=== PATIENT | female | born 1950 | race American Indian/Alaskan Native ===

== ENCOUNTER → 2017-06-29 | Outpatient (CLI) | payer MEDICARE, OTHER ==
[~2017-06-29] MED LIST: ADV250 IH; ATOR20TA86 PO; BACL10TA PO; BENZ1TAB70 PO; GABA-531 PO; LISI-662 PO; LORA10TA7 PO; METF500T4 PO; SOLI5 PO; TIOT4MIS2 IH
== END | disposition home or self-care (01) ==
LOC: RADPV 10:12
PROVIDERS: ATTEND Internal Medicine
DX: I70.203 Unspecified atherosclerosis of native arteries of extremities, bilateral legs (principal); R91.8 Other nonspecific abnormal finding of lung field; Z87.891 Personal history of nicotine dependence
CPT/HCPCS: 71046; 93925; 93970

== ENCOUNTER 2017-09-03 05:26 | Emergency (ER) | payer MEDICARE, OTHER ==
[~2017-09-03] VITALS: Ht 160 cm; Wt 65.9 kg
[2017-09-03] MEDS ORDERED: OXYB5 PO (05:36)
[2017-09-03] MEDS ORDERED: OXYB5XL PO (05:36)
[2017-09-03] MEDS ORDERED: METF850T2 PO (05:36)
[2017-09-03] MEDS ORDERED: ADV250 IH (05:36)
[2017-09-03] MEDS ORDERED: CHOL200016 PO (05:36)
[2017-09-03] MEDS ORDERED: NAPR-58 PO (05:36)
[2017-09-03] MEDS ORDERED: ALBU8HFA IH (05:36)
[2017-09-03 05:43] LABS: GLUCOSE,POINT OF CARE 177 MG/DL (70-110)
[2017-09-03] MEDS ORDERED: ALBUTEROL SULFATE HFA 90 MCG/PUFF 8 GM INHALER IH ONE (06:15)
[2017-09-03 06:39] LABS: BASOPHILS % (AUTO) 0.5 % (0.0-2.0); EOSINOPHILS % (AUTO) 1.5 % (1.0-6.0); HEMATOCRIT 38.3 % (36-46); HEMOGLOBIN 12.9 g/dL (12.0-16.0); LYMPHOCYTES # (AUTO) 2.5 K/uL (1.0-4.8); LYMPHOCYTES % (AUTO) 34.7 % (22.0-44.0); MEAN CORPUSCULAR HEMOGLOBIN 28.3 pg (26.0-34.0); MEAN CORPUSCULAR HGB CONC 33.8 G/dL (31.0-37.0); MEAN CORPUSCULAR VOLUME 84 fL (80-100); MONOCYTES # (AUTO) 0.6 K/uL (0.1-1.0); MONOCYTES % (AUTO) 8.4 % (2.0-9.0); NEUTROPHILS % (AUTO) 54.9 % (40.0-70.0); PLATELET COUNT (AUTO) 281 K/uL (150-450); RED BLOOD CELL COUNT(AUTO) 4.57 MIL/uL (4.00-5.20)
[2017-09-03 06:41] LABS: ANION GAP 8 mmol/L (8-16); CALCIUM, TOTAL 8.8 mg/dL (8.8-10.5); CARBON DIOXIDE 27 mmol/L (22-29); CHLORIDE 102 mmol/L (98-107); CREATININE 0.79 mg/dL (0.60-1.30); GLOMERULAR FILTR. RATE CALC > 60 mL/min (>60); GLUCOSE,RANDOM 200 mg/dL (70-110); POTASSIUM 3.9 mmol/L (3.5-5.1); SODIUM SERUM 137 mmol/L (136-145); UREA NITROGEN, BLOOD 8 mg/dL (7-18)
[2017-09-03 06:47] LABS: ALANINE AMINOTRANSFERASE 14 U/L (12-78); ALBUMIN 3.5 g/dL (3.4-5.0); ALKALINE PHOSPHATASE 165 U/L (46-116); ASPARTATE AMINOTRANSFERASE 9 U/L (15-37); BILIRUBIN,TOTAL 0.2 mg/dL (0.1-1.0); TOTAL PROTEIN, SERUM 7.2 g/dL (6.4-8.2)
[2017-09-03 07:30] VITALS: BP 136/69
== END 2017-09-03 07:34 | disposition home or self-care (01) ==
LOC: EMS 05:27
DX: R06.00 Dyspnea, unspecified (principal); J40 Bronchitis, not specified as acute or chronic; J06.9 Acute upper respiratory infection, unspecified; E11.65 Type 2 diabetes mellitus with hyperglycemia; J45.909 Unspecified asthma, uncomplicated; J44.9 Chronic obstructive pulmonary disease, unspecified; E11.9 Type 2 diabetes mellitus without complications; I10 Essential (primary) hypertension; E78.00 Pure hypercholesterolemia, unspecified; F17.210 Nicotine dependence, cigarettes, uncomplicated; Z88.2 Allergy status to sulfonamides; Z88.8 Allergy status to other drugs, medicaments and biological substances
CPT/HCPCS: 82962; 93005; 94640; 99285; 99406; J3535

== ENCOUNTER 2018-08-16 19:12 | Emergency (ER) | payer MEDICARE, MEDICAID ==
[~2018-08-16] VITALS: Ht 160 cm; Wt 72.7 kg
[~2018-08-16 19:12] MED LIST changes: +ALBU8HFA IH; +CHOL200059 PO; -GABA-531 PO; +METF-445 PO; +METF-960 PO; -METF500T4 PO; +NAPR-58 PO; +OXYB5 PO; +OXYB5XL PO
[2018-08-16 19:43] LABS: GLUCOSE,POINT OF CARE 163 MG/DL (70-110)
[2018-08-16 20:44] LABS: BASOPHILS % (AUTO) 0.9 % (0.0-2.0); EOSINOPHILS % (AUTO) 1.7 % (1.0-6.0); HEMATOCRIT 38.7 % (36-46); HEMOGLOBIN 12.6 g/dL (12.0-16.0); LYMPHOCYTES # (AUTO) 2.6 K/uL (1.0-4.8); MEAN CORPUSCULAR HEMOGLOBIN 27.2 pg (26.0-34.0); MEAN CORPUSCULAR HGB CONC 32.6 G/dL (31.0-37.0); MEAN CORPUSCULAR VOLUME 84 fL (80-100); MONOCYTES # (AUTO) 0.6 K/uL (0.1-1.0); MONOCYTES % (AUTO) 6.8 % (2.0-9.0); NEUTROPHILS # (AUTO) 4.8 K/uL (1.8-7.7); NEUTROPHILS % (AUTO) 58.6 % (40.0-70.0); PLATELET COUNT (AUTO) 335 K/uL (150-450); RED BLOOD CELL COUNT(AUTO) 4.64 MIL/uL (4.00-5.20); RED CELL DISTRIBUTION WIDTH 13.7 % (11.5-14.5)
[2018-08-16 20:54] LABS: ANION GAP 10 mmol/L (8-16); CALCIUM, TOTAL 9.5 mg/dL (8.8-10.5); CARBON DIOXIDE 29 mmol/L (22-29); CHLORIDE 102 mmol/L (98-107); CREATININE 0.74 mg/dL (0.60-1.30); GLOMERULAR FILTR. RATE CALC > 60 mL/min (>60); GLUCOSE,RANDOM 157 mg/dL (70-110); SODIUM SERUM 141 mmol/L (136-145); UREA NITROGEN, BLOOD 13 mg/dL (7-18)
[2018-08-16 21:01] LABS: ALANINE AMINOTRANSFERASE 16 U/L (12-78); ALBUMIN 3.2 g/dL (3.4-5.0); ALKALINE PHOSPHATASE 140 U/L (46-116); ASPARTATE AMINOTRANSFERASE 11 U/L (15-37); BILIRUBIN,TOTAL 0.2 mg/dL (0.1-1.0)
[2018-08-16 21:50] LABS: AMPHET/METH SCREEN,URINE NEGATIVE (NEGATIVE); BARBITURATE SCREEN, URINE NEGATIVE (NEGATIVE); BENZODIAZEPINES SCREEN,URINE NEGATIVE (NEGATIVE); CANNABINOID SCREEN,URINE POSITIVE (NEGATIVE); COCAINE SCREEN,URINE NEGATIVE (NEGATIVE); METHADONE SCREEN, URINE NEGATIVE (NEGATIVE); OPIATE SCREEN,URINE NEGATIVE (NEGATIVE)
[2018-08-16 21:51] LABS: PHENCYCLIDINE SCREEN,URINE NEGATIVE (NEGATIVE)
[2018-08-16] MEDS ORDERED: IBUPROFEN 600 MG TABLET PO ONE (22:00)
[2018-08-16 22:31] LABS: APPEARANCE,URINE CLOUDY (CLEAR); BILIRUBIN,URINE NEGATIVE (NEGATIVE); GLUCOSE, URINE (UA) 100 mg/dL (NEGATIVE); KETONES,URINE NEGATIVE (NEGATIVE); LEUKOCYTE ESTERASE ,URINE LARGE (NEGATIVE); NITRATE,URINE NEGATIVE (NEGATIVE); OCCULT BLOOD,URINE TRACE (NEGATIVE); PROTEIN,URINE NEGATIVE (NEGATIVE)
[2018-08-16 22:37] LABS: RBC,URINE 0-2 /HPF (0-2)
[2018-08-16 22:38] LABS: BACTERIA,URINE Many /HPF (None Seen); SQUAMOUS EPITHELIAL CELL,UR Few /LPF (None Seen); WBC,URINE 26-50 /HPF (0-5)
[2018-08-16 22:39] LABS: CALCIUM OXALATE CRYSTALS,UR Rare /LPF (None Seen)
[2018-08-16] MEDS ORDERED: CEPHALEXIN MONOHYDRATE 500 MG CAPSULE PO ONE (22:45)
[2018-08-16 22:53] VITALS: BP 130/74
== END 2018-08-16 23:26 | disposition home or self-care (01) ==
LOC: EMS 19:13
DX: H83.03 Labyrinthitis, bilateral (principal); N39.0 Urinary tract infection, site not specified; I10 Essential (primary) hypertension; E78.00 Pure hypercholesterolemia, unspecified; E11.9 Type 2 diabetes mellitus without complications; J44.9 Chronic obstructive pulmonary disease, unspecified; F17.210 Nicotine dependence, cigarettes, uncomplicated; Z88.2 Allergy status to sulfonamides; Z88.8 Allergy status to other drugs, medicaments and biological substances; Z79.84 Long term (current) use of oral hypoglycemic drugs; Z79.899 Other long term (current) drug therapy
CPT/HCPCS: 87086; 93005

== ENCOUNTER 2019-09-18 18:45 | Emergency (ER) | payer MEDICARE, MEDICAID ==
[~2019-09-18] VITALS: Ht 167.6 cm; Wt 68.2 kg
[~2019-09-18 18:45] MED LIST changes: +CHOL200016 PO; -CHOL200059 PO; +CIP250 PO; -METF-960 PO; +NAPR-1025 PO; -NAPR-58 PO; -OXYB5 PO
[2019-09-18] MEDS ORDERED: ESCI5SOL2 PO (19:08)
[2019-09-18] MEDS ORDERED: FLUP5 PO (19:08)
[2019-09-18] MEDS ORDERED: SENN8.8S6 PO (19:08)
[2019-09-18] MEDS ORDERED: METF-960 PO (19:08)
[2019-09-18] MEDS ORDERED: OLAN2.5T3 PO (19:08)
[2019-09-18] MEDS ORDERED: DOCU-202 PO (19:08)
[2019-09-18] MEDS ORDERED: GLIP5 PO (19:08)
[2019-09-18] MEDS ORDERED: LOSA25TA71 PO (19:08)
[2019-09-18] MEDS ORDERED: OXYB5 PO (19:08)
[2019-09-18] MEDS ORDERED: AMAN-6 PO (19:08)
[2019-09-18] MEDS ORDERED: SENN-176 PO (19:12)
[2019-09-18] MEDS ORDERED: ESCI10TA PO (19:12)
[2019-09-18] MEDS ORDERED: BENZ1TAB10 PO (19:12)
[2019-09-18] MEDS ORDERED: DOCU-342 PO (19:12)
[2019-09-18] MEDS ORDERED: ACETAMINOPHEN 500 MG TABLET PO ONE (19:15)
[2019-09-18 19:36] LABS: GLUCOMETER DEV NAME(LOC) AHU.; GLUCOSE,POINT OF CARE 220 MG/DL (70-110)
[2019-09-18 23:01] VITALS: BP 114/84
== END 2019-09-18 23:31 | disposition home or self-care (01) ==
LOC: EMS 18:47
DX: J06.9 Acute upper respiratory infection, unspecified (principal); F17.210 Nicotine dependence, cigarettes, uncomplicated; Z71.89 Other specified counseling